=== PATIENT | female | born 1990 | race Caucasian/White ===

== ENCOUNTER 2017-11-04 13:33 | Outpatient (RCR) | payer BC ==
[2017-11-04 15:12] LABS: PROTHROMBIN TIME PATIENT 13.1 SEC (12.2-14.7)
[2017-11-22] MEDS ORDERED: CETI10TA17 PO (08:23)
[2017-11-22] MEDS ORDERED: FLUT9.9S NS (08:23)
[2017-12-02] MEDS ORDERED: DEXAINTSOL PO (12:27)
[2017-12-02] MEDS ORDERED: AMOX250S5 PO (12:27)
[2017-12-02] MEDS ORDERED: TETRACAINESUCKERS MT (12:27)
== END 2018-02-02 | disposition home or self-care (01) ==
LOC: ONC 13:33
PROVIDERS: ATTEND Internal Medicine Hematology & Oncology
DX: Z83.2 Family history of diseases of the blood and blood-forming organs and certain disorders involving the immune mechanism (principal); F17.201 Nicotine dependence, unspecified, in remission; E66.9 Obesity, unspecified; Z68.30 Body mass index [BMI] 30.0-30.9, adult
CPT/HCPCS: 81241; 85610; 85730; 99214

== ENCOUNTER 2017-11-22 08:08 | Outpatient (CLI) | payer BC ==
[~2017-11-22] VITALS: Ht 162.6 cm; Wt 78.7 kg
[2017-11-22] MEDS ORDERED: FLUT9.9S NS (08:23)
[2017-11-22] MEDS ORDERED: CETI10TA17 PO (08:23)
[2017-11-22 08:26] VITALS: BP 116/76
[2017-11-22 09:00] LABS: BASOPHILS % (AUTO) 0 % (0-10); EOSINOPHILS # (AUTO) 0.2 10^3/uL (0.0-0.3); EOSINOPHILS % (AUTO) 3 % (0-10); HEMATOCRIT 39 % (35-52); HEMOGLOBIN 13.8 G/DL (11.5-16.0); LYMPHOCYTES # (AUTO) 2.4 X 10^3 (1.0-4.0); LYMPHOCYTES % (AUTO) 33 % (12-44); MEAN CORPUSCULAR HEMOGLOBIN 30 PG (25-34); MEAN CORPUSCULAR HGB CONC 35 G/DL (32-36); MEAN CORPUSCULAR VOLUME 86 FL (80-99); MEAN PLATELET VOLUME 10.9 FL (7.4-10.4); MONOCYTES # (AUTO) 0.6 X 10^3 (0.0-1.0); MONOCYTES % (AUTO) 8 % (0-12); NEUTROPHILS # (AUTO) 4.1 X 10^3 (1.8-7.8); NEUTROPHILS % (AUTO) 56 % (42-75); PLATELET COUNT 284 10^3/uL (130-400); RED BLOOD COUNT 4.56 10^6/uL (4.35-5.85); RED CELL DISTRIBUTION WIDTH 13.3 % (10.0-14.5); WHITE BLOOD COUNT 7.4 10^3/uL (4.3-11.0)
[2017-11-22 09:15] LABS: BUN/CREATININE RATIO 15; CALCIUM 9.3 MG/DL (8.5-10.1); CARBON DIOXIDE 23 MMOL/L (21-32); CHLORIDE 108 MMOL/L (98-107); CREATININE SERUM 0.78 MG/DL (0.60-1.30); GFR ESTIMATED > 60; GLUCOSE 102 MG/DL (70-105); POTASSIUM 3.8 MMOL/L (3.6-5.0); SODIUM 141 MMOL/L (135-145)
== END 2017-11-22 11:33 | disposition home or self-care (01) ==
LOC: PREOP 08:08
PROVIDERS: ATTEND Otolaryngology Otolaryngology/Facial Plastic Surgery
DX: Z01.812 Encounter for preprocedural laboratory examination (principal); Z11.2 Encounter for screening for other bacterial diseases; J02.0 Streptococcal pharyngitis
CPT/HCPCS: 36415; 80048; 85025; 87081

== ENCOUNTER 2017-12-02 07:40 | Day surgery (SDC) | payer BC ==
[~2017-12-02] VITALS: Ht 162.6 cm; Wt 78.7 kg
[~2017-12-02 07:40] MED LIST: CETI10TA17 PO; FLUT9.9S NS
[2017-12-02 07:45] VITALS: BP 123/77
[2017-12-02] MEDS: LACTATED RINGERS 1,000 ML IV PRN ×2 (08:14→10:40)
[2017-12-02] MEDS ORDERED: MIDAZOLAM 2 MG/2 ML (VERSED) VIAL IV ONE (08:15)
--- NOTE | 2017-12-02 09:25 | Progress Note-Pre Operative ---
Pre-Operative Progress Note H&P Reviewed The H&P was reviewed, patient examined and no changes noted. Date Seen by Provider: Dec 02, 2017 Time Seen by Provider: 09:00 Date H&P Reviewed: Dec 02, 2017 Time H&P Reviewed: 09:00 Pre-Operative Diagnosis: REc T onsillitis, cryptic Tonsils NANCY MATHEWS MD Dec 02, 2017 9:25 am
[2017-12-02] MEDS ORDERED: proPOfol 200 MG/20 ML (DIPRIVAN) VIAL IV ONE (10:16)
[2017-12-02] MEDS ORDERED: SEVOFLURANE (ULTANE) 15 ML INHAL SOLN ONE (10:16)
[2017-12-02] MEDS ORDERED: LIDOCAINE PF 2% 5 ML (XYLOCAINE) VIAL ONE (10:16)
[2017-12-02] MEDS ORDERED: fentaNYL INJECTION 100 MCG/2 ML AMP ONE (10:16)
[2017-12-02] MEDS ORDERED: ONDANSETRON 4 MG/2 ML (SDV) Z0FRAN ONE (10:16)
[2017-12-02] MEDS ORDERED: DEXAMETHASONE 10 MG/ML (DECADRON) 1 ML VIAL ONE (10:16)
[2017-12-02] MEDS ORDERED: SUCCINYLCHOLINE INJ 100 MG/5 ML SYR ONE (10:16)
[2017-12-02] MEDS ORDERED: ROCURONIUM 50 MG/5 ML (ZEMURON) VIAL IV ONE (10:16)
[2017-12-02] MEDS ORDERED: morphine INJ 10 MG/ML 1ML (SYR OR VIAL) ONE (10:24)
[2017-12-02] MEDS ORDERED: MEPERIDINE (DEMEROL) INJ 50 MG/ML ONE (10:24)
[2017-12-02] MEDS ORDERED: NS IV 1000 ML 1,000 ML IV SCH (10:25)
--- NOTE | 2017-12-02 10:25 | Progress Note-Post Operative ---
Post-Operative Progess Note Surgeon (s)/Swatch Checker (s) Surgeon NANCY MATHEWS MD Swatch Checker n/a Pre-Operative Diagnosis REc T onsillitis, cryptic Tonsils Post-Operative Diagnosis same Post-Op Procedure Note Date of Procedure: Dec 02, 2017 Name of Procedure Performed: Tonsillectomy Description & Findings Description and Findings: n/a Anesthesia Type get Estimated Blood Loss minimal Packing none. Specimen(s) collected/removed tonsils NANCY MATHEWS MD Dec 02, 2017 10:25 am
[2017-12-02] MEDS ORDERED: HYDROcodone/APAP 7.5MG-325 MG/15 ML (LORTAB) UDC PO PRN (10:30)
[2017-12-02] MEDS ORDERED: APAP 325 MG/10.15 ML LIQ (TYLENOL) UDC PO PRN (10:30)
[2017-12-02] MEDS: morphine INJ 10 MG/ML 1ML (SYR OR VIAL) IVP PRN ×2 (10:36→10:40)
[2017-12-02] MEDS ORDERED: HYDROmorphone (DILAUDID) 2 MG/ML VIAL IVP PRN (10:45)
[2017-12-02] MEDS ORDERED: ONDANSETRON 4 MG/2 ML (SDV) Z0FRAN IVP PRN (10:45)
[2017-12-02] MEDS ORDERED: MEPERIDINE (DEMEROL) INJ 50 MG/ML IVP PRN (10:45)
[2017-12-02 11:20] VITALS: BP 114/73
[2017-12-02 11:21] VITALS: BP 114/73
[2017-12-02 11:50] VITALS: BP 122/85
[2017-12-02 12:20] VITALS: BP 116/59
[2017-12-02] MEDS ORDERED: AMOX250S5 PO (12:27)
[2017-12-02] MEDS ORDERED: TETRACAINESUCKERS MT (12:27)
[2017-12-02] MEDS ORDERED: DEXAINTSOL PO (12:27)
--- OUTSIDE RECORDS SUMMARY | 2017-12-04 08:05 | XMS REPORT | Continuity of Care Document ---
Author Author [facility] Address Unknown Phone Unavailable Allergies Active Description Code Type Severity Reaction Onset Reported/Identified Relationship to Patient Clinical Status Yes No known drug allergies [id number] ND N/A N/A Medications There is no data. Problems Date Dx Coded Attending Type Code Diagnosis Diagnosed By 07/03/2011 TANIKA RAZO MD 787.03 VOMITING ALONE 07/03/2011 TANIKA RAZO MD 789.06 ABDOMINAL PAIN EPIGASTRI 07/03/2011 TANIKA RAZO MD 787.03 VOMITING ALONE 07/03/2011 TANIKA RAZO MD 789.06 ABDOMINAL PAIN EPIGASTRI 09/23/2012 JAMSHID MAC MD 465.9 ACUTE URI NOS 09/23/2012 JAMSHID MAC MD 487.1 FLU W RESP MANIFEST NEC 09/23/2012 JAMSHID MAC MD 465.9 ACUTE URI NOS 09/23/2012 JAMSHID MAC MD 487.1 FLU W RESP MANIFEST NEC 10/29/2012 JOEL TENA MD 388.70 OTALGIA NOS 10/29/2012 JOEL TENA MD 473.9 CHRONIC SINUSITIS NOS 10/29/2012 JOEL TENA MD 784.99 SX INVOLV HEAD/NECK NEC 10/29/2012 JOEL TEAN MD 786.2 COUGH 10/29/2012 JOEL TENA MD 388.70 OTALGIA NOS 10/29/2012 JOEL TENA MD 473.9 CHRONIC SINUSITIS NOS 10/29/2012 JOEL TENA MD 784.99 SX INVOLV HEAD/NECK NEC 10/29/2012 JOEL TENA MD 786.2 COUGH 01/01/2013 TANIKA RAZO MD 280.9 IRON DEFIC ANEMIA NOS 01/01/2013 TANIKA RAZO MD 723.1 CERVICALGIA 01/01/2013 TANIKA RAZO MD 724.5 BACKACHE NOS 01/01/2013 TANIKA RAZO MD 728.87 MUSCLE WEAKNESS 01/01/2013 TANIKA RAZO MD 780.79 OTHER MALAISE & FATIGUE Procedures Code [place] [address] EMERGENCY DEPT VISIT TNAIKA RAZO MD 07/03/2011 91729 EMERGENCY DEPT VISIT TANIKA RAZO MD 07/03/2011 96501 ROUTINE VENIPUNCTURE ESTEFANIA MONK, JAMSHID C 09/23/2012 29463 COMPLETE CBC W/AUTO DIFF WBC ESTEFANIA MONK, JAMSHID C 09/23/2012 88014 MYCOPLASMA ANTIBODY BLUE MAC MDWALDO C 09/23/2012 84336 INFLUENZA ASSAY W/OPTIC BLUE MAC MDWALDO C 09/23/2012 70673 EMERGENCY DEPT VISIT BLUE MAC MDWALDO C 09/23/2012 59354 EMERGENCY DEPT VISIT BLUE MAC MDWALDO C 09/23/2012 74495 ROUTINE VENIPUNCTURE MALLIKA MONK, JOEL Yuan 10/29/2012 27145 COMPREHEN METABOLIC PANEL MALLIKA MONK, JOEL Yuan 10/29/2012 19039 COMPLETE CBC W/AUTO DIFF WBC MALLIKA MONK, JOEL Yuan 10/29/2012 62655 HETEROPHILE ANTIBODIES MALLIKA MONK, JOEL Yuan 10/29/2012 73251 MYCOPLASMA ANTIBODY MALLIKA MONK, JOEL Yuan 10/29/2012 49492 INFLUENZA ASSAY W/OPTIC MALLIKA MONK, JOEL Yuan 10/29/2012 21719 THER/PROPH/DIAG INJ, SC/IM MALLIKA MONK, JOEL Yuan 10/29/2012 17645 EMERGENCY DEPT VISIT MALLIKA MONK, JOEL Yuan 10/29/2012 J0696 CEFTRIAXONE SODIUM INJECTION MALLIKA MONK, JOEL Yuan 10/29/2012 65141 EMERGENCY DEPT VISIT MALLIKA MONK, JOEL Yuan 10/29/2012 03995 ROUTINE VENIPUNCTURE TANIKA RAZO MD 01/01/2013 40709 X-RAY EXAM OF NECK SPINE TANIKA RAZO MD 01/01/2013 32272 X-RAY EXAM OF THORACIC SPINE TANIKA RAZO MD 01/01/2013 59372 X-RAY EXAM OF LOWER SPINE TANIKA RAZO MD 01/01/2013 94519 COMPREHEN METABOLIC PANEL TANIKA RAZO MD 01/01/2013 97498 ASSAY OF VITAMIN D TANIKA RAZO MD 01/01/2013 89362 VITAMIN B-12 TANIKA RAZO MD 01/01/2013 29809 ASSAY OF FERRITIN TANIKA RAZO MD 01/01/2013 45355 ASSAY OF IRON TANIKA RAZO MD 01/01/2013 11272 IRON BINDING TEST TANIKA RAZO MD 01/01/2013 18937 ASSAY OF FREE THYROXINE TANIKA RAZO MD 01/01/2013 42597 ASSAY THYROID STIM HORMONE TANIKA RAZO MD 01/01/2013 76033 BL SMEAR W/DIFF WBC COUNT TANIKA RAZO MD 01/01/2013 40005 COMPLETE CBC, AUTOMATED TANIKA RAZO MD 01/01/2013 Results Test Result Range COMPLETE BLOOD COUNT - 01/01/13 10:33 Platelet 291 10^3u 142-424 MPV 10.4 FL 9.4-12.4 [place] # 0.70 10^3u 0.0-1.0 [place] 9.0 RBC 4.73 10^6u 4.04-6.13 [place] % 10.3 % 0-12 RDW 14.0 % 11.6-14.8 Seg 50.0 Neut # 3.99 10^3u 2.0-6.9 Neut % 58.6 % 37-80 WBC 6.81 10^3u 4.60-10.20 Bands 1.0 MCV 86.3 FL 80.0-97.0 Baso # 0.03 10^3u 0.0-0.1 Baso % 0.4 % 0-2 Eos 4.0 Eos # 0.35 10^3u 0-7 Eos % 5.1 % 0.0-0.7 Lymph % 25.6 % 10-50 MCHC 35.0 G/DL 31.8-35.4 MCH 30.2 PG 27.0-31.2 Lymph # 1.74 10^3u 0.6-3.4 Lymph 36.0 HGB 14.3 G/DL 12.2-18.1 HCT 40.8 % 37.7-53.7 CMP - 01/01/13 10:33 Osmo Calculated 279 MOSM 261-280 Sodium 145 MMOLL 137-145 T. Protein 7.8 G/DL 6.3-8.2 Potassium 4.4 MMOLL 3.6-5.0 T Bili 0.4 MG/DL 0.2-1.3 Calcium 9.5 MG/DL 8.4-10.2 BUN 12 MG/DL 7-21 Chloride 107 MMOLL 98-107 AST 32 U/L 15-46 ALT 26 U/L 7-56 Albumin 4.2 G/DL 3.5-5.0 A/G Ratio 1.2 RATIO 1.2-2.2 Bun/Creat 16.3 RATIO 7-25 Alk Phos 90 U/L 38-126 CO2 24 MMOLL 22-30 Glucose 94 MG/DL 65-110 Globulin 3.6 2.4-3.5 Creatinine 0.8 MG/DL 0.7-1.5 Iron Panel (FE/IBC/%Sat) - 01/01/13 10:33 TIBC 329 UG/DL 280-380 % Saturation 18.5 % 15-50 Iron 61 UG/DL 40-180 Vitamin B12 - 01/01/13 10:33 Vitamin B12 662 PG/ML 200-1000 Ferritin - 01/01/13 10:33 Ferritin 130.12 NG/ML 25-300 Free T4 - 01/01/13 10:33 Free T4 1.24 NG/DL 0.70-1.48 TSH - 01/01/13 10:33 TSH 0.91 UIUML 0.35-4.94 Vitamin D 25 Hydroxy - 01/01/13 10:33 Vitamin D 25 Hydroxy 22.9 NG/ML 30-100 Encounters ACCT No. Visit Date/Time Discharge Status Pt. Type Provider Facility Loc./Unit Complaint [id number] 01/01/2013 10:17:00 01/01/2013 10:17:00 DIS Outpatient DUNG MONK, TANIKA [facility] OTHER [id number] 10/29/2012 18:47:00 10/29/2012 23:59:59 CLS Emergency MALLIKA MONK, JOEL Yuan [id number] 10/29/2012 18:40:00 10/29/2012 23:59:59 CLS Outpatient MALLIKA MONK, JOEL Yuan [id number] 09/23/2012 09:55:00 09/23/2012 23:59:59 CLS Emergency JAMSHID MAC MD [id number] 09/23/2012 09:55:00 09/23/2012 23:59:59 CLS Outpatient JAMSHID MAC MD [id number] 07/03/2011 01:15:00 07/03/2011 23:59:59 CLS Outpatient TANIKA RAZO MD [id number] 07/03/2011 00:40:00 07/03/2011 23:59:59 CLS Emergency TANIKA RAZO MD [id number] 08/10/2014 11:52:00 08/10/2014 11:52:00 DIS Outpatient JESSICA RAMSEY [facility] [id number] 07/17/2014 08:37:00 07/17/2014 08:37:00 DIS Outpatient JANAY NAVA [facility] [id number] 03/08/2016 12:24:17 Document Registration [id number] 10/09/2015 10:00:00 10/09/2015 23:59:59 CLS Outpatient [place] MONK, Ifeanyi Mai [facility] JAMIE
== END 2017-12-02 13:55 | disposition home or self-care (01) ==
LOC: SDC 07:40
PROVIDERS: ATTEND Otolaryngology Otolaryngology/Facial Plastic Surgery
DX: J35.01 Chronic tonsillitis (principal); J45.990 Exercise induced bronchospasm; F17.210 Nicotine dependence, cigarettes, uncomplicated; K21.9 Gastro-esophageal reflux disease without esophagitis; K59.09 Other constipation; Z79.899 Other long term (current) drug therapy
CPT/HCPCS: 84703